=== PATIENT | female | born 1980 | race Caucasian/White ===

== ENCOUNTER 2018-07-19 19:17 | Emergency (ER) | payer OTHER ==
[~2018-07-19] VITALS: Ht 170.2 cm; Wt 110.0 kg
[2018-07-19 19:20] VITALS: BP 122/90
[2018-07-19] MEDS ORDERED: HYDROmorphone 1 mg/ml syringe IM ONE (20:00)
[2018-07-19] MEDS ORDERED: ketorolac trometh inj. 60 MG/2 ML VIAL IM ONE (20:00)
[2018-07-19] MEDS ORDERED: HYDROcodone/acetaminophen 10/325mg tab PO ONE (20:00)
[2018-07-19] MEDS ORDERED: triamcinolone acetonide 40mg/ml inj IM ONE (20:00)
[2018-07-19] MEDS ORDERED: HYDR-565 PO (20:34)
[2018-07-19] MEDS ORDERED: ORPH100T2 PO (20:34)
== END 2018-07-19 21:30 | disposition home or self-care (01) ==
LOC: ER 19:18
DX: M54.5 Low back pain (principal); G89.29 Other chronic pain
CPT/HCPCS: 96372; 99284; J1170; J1885; J3301